=== PATIENT | female | born 1965 | race Caucasian/White ===

== ENCOUNTER 2023-10-26 14:04 | Emergency (ER) | payer BC, SELFPAY ==
[2023-10-26 14:16] VITALS: BP 197/106; PULSE 84; RESP 16; TEMP 36.8; O2SAT 97; BMI 31.5
--- NOTE | 2023-10-26 14:22 | CTR_ITS ---
PROCEDURE INFORMATION: Exam: CT Cervical Spine Without Contrast Exam date and time: 10/26/2023 2:50 PM Age: 58 years old Clinical indication: Injury or trauma; Fall; Blunt trauma; Patient HX: Hit back of head; Additional info: Fall/trauma TECHNIQUE: Imaging protocol: Computed tomography of the cervical spine without contrast. Radiation optimization: All CT scans at this facility use at least one of these dose optimization techniques: automated exposure control; mA and/or kV adjustment per patient size (includes targeted exams where dose is matched to clinical indication); or iterative reconstruction. COMPARISON: CT head wo con* [id number] 10/26/2023 2:50 PM RADIATION DOSE METRICS: Total DLP (mGy-cm): 899.1 FINDINGS: Bones/joints: No fracture or malalignment. Multilevel spondylosis moderate at C5-C6 and mild at other levels. No severe canal stenosis. Lungs: Lung apices are normal. Soft tissues: No acute findings. CT/CT cervical spin wo con* [id number] IMPRESSION: No acute findings.
--- NOTE | 2023-10-26 14:22 | CTR_ITS ---
PROCEDURE INFORMATION: Exam: CT Head Without Contrast Exam date and time: 10/26/2023 2:50 PM Age: 58 years old Clinical indication: Injury or trauma; Fall; Blunt trauma (contusions or hematomas); Patient HX: Hit back of head; Additional info: Trauma/fall TECHNIQUE: Imaging protocol: Computed tomography of the head without contrast. Radiation optimization: All CT scans at this facility use at least one of these dose optimization techniques: automated exposure control; mA and/or kV adjustment per patient size (includes targeted exams where dose is matched to clinical indication); or iterative reconstruction. COMPARISON: CT cervical spin wo con* [id number] 10/26/2023 2:50 PM RADIATION DOSE METRICS: Total DLP (mGy-cm): 981.4 FINDINGS: Brain: No hemorrhage. Chronic white matter and senescent changes. Cerebral ventricles: No ventriculomegaly. Paranasal sinuses: Visualized sinuses are grossly clear. Mastoid air cells: No mastoid effusion. Bones/joints: No acute findings. Soft tissues: Parieto-occipital scalp contusion. CT/CT head wo con* [id number] IMPRESSION: No acute intracranial abnormality.
--- NOTE | 2023-10-26 15:24 | ED_ITS ---
HPI - Head Injury General: Chief complaint: Head Injury Stated complaint: fell,lac to back of head Time Seen by Provider: 10/26/23 15:23 Source: patient Mode of arrival: ambulatory History of Present Illness: 58-year-old female who slipped and fell on the ice at the back of her head when she fell no loss conscious complaining neck pain and headache. She is not on any anticoagulants. There is no loss consciousness she is unsure of her last tetanus shot Complaint: head injury Onset (ago): minute(s) Mechanism of Injury: fall Place: home Loss of Consciousness: no Location of injury: occipital Associated symptoms: Deny amnesia, confusion, nausea, neck pain, numbness, syncope, tingling, vertigo, visual changes, vomiting or weakness Review of Systems Const: Denies: fever(s) or chills Card: Denies: chest pain or syncope Resp: Denies: dyspnea GI: Denies: abdominal pain, nausea or vomiting : Denies: dysuria, urinary frequency or urinary urgency Musc: Denies: neck pain or back pain Skin/Breast: Denies: rash Neuro: Denies: vertigo or confusion Physical Exam Const: COMMON NORMALS: no acute distress GENERAL APPEARANCE: cooperative and comfortable ORIENTATION/CONSCIOUSNESS: Yes awake, Yes oriented to person, Yes oriented to place and Yes oriented to time HENMT: COMMON NORMALS: normocephalic and hearing grossly normal bilaterally HEAD & SCALP: normocephalic OTHER: 1 inch occipital scalp laceration no act erik bleeding Resp: COMMON NORMALS: normal respiratory effort, No retractions and No use of accessory muscles Extremity: COMMON NORMALS: normal to inspection, capillary refill normal, no clubbing, cyanosis or edema, no calf tenderness and no pedal edema Neuro: SENSORIUM/ORIENTATION: Yes oriented to person, Yes oriented to place and Yes oriented to time Skin: COMMON NORMALS: no rashes or lesions noted GENERAL SKIN EXAM: no rashes or lesions noted Procedures Laceration Laceration 1: Site: scalp Size (cm): 2.5 Description: linear Depth: simple, single layer Skin layer closed with: other (Peng) Number of sutures: 2 Course Vital Signs: Vital signs: Vital Signs Temperature 98.3 F 10/26/23 14:16 Pulse Rate 85 10/26/23 17:03 Respiratory Rate 16 10/26/23 17:03 Blood Pressure 179/106 10/26/23 17:03 Pulse Oximetry 95 10/26/23 17:03 Oxygen Delivery Me thod Room Air 10/26/23 17:03 MDM - Head Injury Medcial Decision Making CT head and neck negative. Tetanus updated. 2 peng applied to skin laceration after his wound was cleansed. Wound care instructions given. Blood pressure was markedly elevated patient given hydralazine and improved on manual blood pressure check was 129/87 before discharge discharged home with amlodipine 2.5 mg daily Vining out in 7 to 10 days follow-up with primary care regarding the blood pressure. Medical Records I reviewed the patient's medical records. Lab Data I reviewed the patient's lab results. Radiology Impressions Cervical Spine CT 10/26/23 14:22 IMPRESSION: No acute findings. Head CT 10/26/23 14:22 IMPRESSION: No acute intracranial abnormality. All radiology interpretation(s) finalized by discharge Discharge Plan Discharge Patient Disposition: Home Clinical Impression: Closed head injury, Laceration of scalp, Hypertension Condition: Stable Prescriptions: New amlodipine 2.5 mg tablet 2.5 mg PO DAILY Qty: 30 0RF Discharge Orders: Discharge ED (Routine); Ordered 10/26/23 Ordered By: Randy Combs Discharge Diet: Usual diet Discharge Activity: Resume usual activity Patient Instructions: Opioid Safety, Pain Management Activity Restrictions/Additional Instructions: Thank you for choosing [facility] for your healthcare needs today. Please realize this is an emergency room and that we are providing you with a medical screening exam and this may not be complete and all inclusive of all the testing and or work up that you may need to determine your ailment or severity of your illness. It is very important that you follow up as instructed or that you return to the Emergency Department should you have concerns or if your condition changes or worsens in any way. You are seen today after a fall CT of the head and neck were unremarkable. Laceration was closed with 2 peng. He should be removed by your primary care doctor in 7 to 10 days. Apply topical antibiotic ointment once daily to help the wound heal quicker and make it easier to remove the peng. While you are in the emergency room your tetanus was updated. He also noted a bed elevated blood pressure. He responded to the medications given. Recommend he start amlodipine 2.5 mg once daily and follow-up with your doctor within the next week. Coding Level of Care Code ED Fire Alarm Dispatcher for Debi Pinedo
[2023-10-26 15:45] VITALS: BP 213/130; PULSE 90; RESP 17; O2SAT 98
[2023-10-26] MEDS: amlodipine 10 mg Tablet PO (16:21)
[2023-10-26] MEDS: HYDROcodone-acetaminophen 5-325 mg Tablet 1 TAB PO (16:21)
[2023-10-26] MEDS: tetanus-dipt-pertussis 0.5 mL SDV IM (16:22)
[2023-10-26] MEDS: hyDRALAzine 20 mg/mL INJ 1 mL IVP (16:57)
[2023-10-26 17:03] VITALS: BP 179/106; PULSE 85; RESP 16; O2SAT 95
[2023-10-26] MEDS: ondansetron 4 MG Tablet PO (17:50)
[2023-10-26 17:56] VITALS: BP 179/106; PULSE 85; RESP 16; TEMP 36.8; O2SAT 95
== END 2023-10-26 17:56 | disposition home or self-care (01) ==
PROVIDERS: Emergency Provider Family Medicine
DX: S01.01XA Laceration without foreign body of scalp, initial encounter (principal); I10 Essential (primary) hypertension; Z23 Encounter for immunization; W00.0XXA Fall on same level due to ice and snow, initial encounter
CPT/HCPCS: 12001; 70450; 72125; 90471; 90715; 96374; 99285; J0360; Q0162

== ENCOUNTER 2025-03-20 12:08 | Emergency (ER) | payer SELFPAY ==
[2025-03-20 12:10] VITALS: BP 163/95; PULSE 67; RESP 20; TEMP 36.7; O2SAT 97; BMI 27.8
--- NOTE | 2025-03-20 13:05 | ED.C_ITS ---
HPI - Psych 2 General: Chief Complaint: Psychiatric Symptoms Stated Complaint: MHE Time Seen by Provider: 03/20/25 12:49 History of Present Illness: 59-year-old female brought in by her ginger smith. Patient daughter reports that she is having some auditory, visual hallucinations along with having some memory issues. Daughter reports that she has not been sleeping well due to some restless legs. That she had a lot of insomnia and is only [employer] 2 hours in the last week. Patient denies any suicidal homicidal issues. She does have some short-term memory issues recalling what we just visited about Associated symptoms: Reports auditory hallucinations, visual hallucinations and depression; Deny homicidal ideation or suicidal ideation Related Data Home Medications ?Medication ?Instructions ?Recorded ?Confirmed gabapentin 300 mg capsule 300 mg PO BEDTIME 03/20/25 0 03/20/25 metoprolol succinate 50 mg 50 mg PO DAILY 03/20/2506/06 tablet,extended release 24 hr venlafaxine 150 mg 150 mg PO DAILY 03/20/2506/06 capsule,extended release 24 hr Allergies Allergy/AdvReac Type Severity Reaction Status Date / Time No Known Allergies Allergy Verified 03/20/25 12:22 Review of Systems 2 Psych: Reports: anxiety, depression, sleeping less, memory loss, difficulty concentrating, visual hallucinations and auditory hallucinations; Denies: suicidal ideation or homicidal ideation Physical Exam 2 Const: COMMON NORMALS: no acute distress, healthy appearing and alert G ENERAL APPEARANCE: well kempt Resp: COMMON NORMALS: normal respiratory effort and clear to auscultation bilaterally AUSCULTATION: clear to auscultation bilaterally Cardio: COMMON NORMALS: regular rate and regular rhythm RATE: regular rate RHYTHM: regular rhythm Extremity: COMMON NORMALS: normal to inspection, full ROM and capillary refill normal Neuro: COMMON NORMALS: CN's II-XII intact bilaterally, moves all extremities, no focal motor deficits and no sensory deficits noted SENSORIUM/ORIENTATION: Yes alert Psych: COMMON NORMALS: speech normal APPEARANCE: Yes grossly normal and Yes well kempt SPEECH: Yes normal speech MOOD & AFFECT: Yes euthymic mood T HOUGHT PROCESS: disorganized and confused THOUGHT CONTENT: No Suicidality present, No Homicidality present and Yes Hallucination(s) present A TTENTION/CONCENTRATION: Yes attention grossly intact MEMORY/COGNITION: Yes memory grossly impaired Impared memory type(s): immediate and short term I NSIGHT: Fair insight present (Psych) Course 2 Vital Signs: Vital signs: Vital Signs Temperature 98.1 F 03/20/25 12:10 Pulse Rate 67 03/20/25 12:10 Respiratory Rate 16 03/20/25 18:45 Blood Pressure 163/95 03/20/25 12:10 Pulse Oximetry 97 03/20/25 12:10 Oxygen Delivery Me thod Room Air 03/20/25 12:10 MDM - Psych Medical Decision Making Patient diagnostic studies were ordered reviewed and showed no acute findings. Patient does have I believe some early onset dementia or cognitive decline. He is also dealing with some insomnia and what sounds like restless legs. Discussed need with patient and patient's daughter that she should follow-up with her primary care provider and at behavioral health to have these further evaluated. I do believe patient was having some mild psychosis which may be related to the insomnia versus an other etiology. Patient is does not want to be admitted. Patient daughter at this time felt that she would be safe at home and did not feel that she would need to be 89 to for admission to a [facility] or behavioral health unit. She should return as needed. Patient was stable upon discharge. Lab Data 03/20/25 13:03 03/20/25 13:03 Laboratory Results WBC 6.84 10^3/uL (3.29-11.43) 03/20/25 13:03 RBC 4.22 10^6/uL (3.85-5.65) 03/20/25 13:03 Hgb 10.80 g/dL (11.27-16.99) L 03/20/25 13:03 Hct 35.1 % (36-47) L 03/20/25 13:03 MCV 83.2 fl (85-98) L 03/20/25 13:03 MCH 25.6 pg (27-33) L 03/20/25 13:03 MCHC 30.8 g/dL (30-55) 03/20/25 13:03 RDW 13.9 % (12.1-15.1) 03/20/25 13:03 Plt Count 298 10^3/cmm (157-399) 03/20/25 13:03 MPV 10.3 fL (7.4-10.4) 03/20/25 13:03 Neut % (Auto) 58.7 % 03/20/25 13:03 Lymph % (Auto) 24.6 % 03/20/25 13:03 [place] % (Auto) 10.4 % 03/20/25 13:03 Eos % (Auto) 5.6 % 03/20/25 13:03 Baso % (Auto) 0.4 % 03/20/25 13:03 Neut # (Auto) 4.02 10^3/uL (1.8-7.7) 03/20/25 13:03 Lymph # (Auto) 1.7 10^3/uL (0.8-4.8) 03/20/25 13:03 [place] # (Auto) 0.7 10^3/uL (0.2-0.9) 03/20/25 13:03 Eos # (Auto) 0.4 10^3/uL (0.0-0.8) 03/20/25 13:03 Baso # (Auto) 0.0 10^3/uL (0.0-0.1) 03/20/25 13:03 Nucleated RBC % (auto) 0 % 03/20/25 13:03 Nucleated RBCs # 0.0 /100WBC 03/20/25 13:03 Sodium 136 mmol/L (136-145) 03/20/25 13:03 Potassium 4.3 mmol/L (3.5-5.1) 03/20/25 13:03 Chloride 102 mmol/L (98-107) 03/20/25 13:03 Carbon Dioxide 24 mmol/L (22-29) 03/20/25 13:03 Anion Gap 14.3 (5-19) 03/20/25 13:03 BUN 19 mg/dL (8-23) 03/20/25 13:03 Creatinine 0.9 mg/dL (0.5-0.9) 03/20/25 13:03 GFR Calculation 63.7 mL/min (90-130) L 03/20/25 13:03 Glucose 96 mg/dL (65-115) 03/20/25 13:03 Calculated Osmolality 284 mOsm/kg (285-295) L 03/20/25 13:03 Calcium 9.6 mg/dL (8.5-10.5) 03/20/25 13:03 Total Bilirubin 0.3 mg/dL (0.15-1.2) 03/20/25 13:03 AST 13 U/L (0-32) 03/20/25 13:03 ALT < 5 U/L (0-33) 03/20/25 13:03 Alkaline Phosphatase 77 U/L (35-105) 03/20/25 13:03 Total Protein 7.2 g/dL (6.6-8.7) 03/20/25 13:03 Albumin 4.1 g/dL (3.5-5.2) 03/20/25 13:03 Globulin 3.1 g/dL (1.3-4.6) 03/20/25 13:03 Urine Color Yellow (Yellow) 03/20/25 14:30 Urine Appearance Clear (CLEAR) 03/20/25 14:30 Urine pH 5.5 (5-7) 03/20/25 14:30 Ur Specific [place] 1.009 (1.005-1.030) 03/20/25 14:30 Urine Protein Negative (Negative) 03/20/25 14:30 Urine Glucose (UA) Negative (Normal) 03/20/25 14:30 Urine Ketones Negative (Negative) 03/20/25 14:30 Urine Blood Negative (Negative) 03/20/25 14:30 Urine Nitrate Negative (Negative) 03/20/25 14:30 Urine Bilirubin Negative (Negative) 03/20/25 14:30 Urine Urobilinogen 0.2 mg/dL (Negative) 03/20/25 14:30 Ur Leukocyte Esterase Negative (Negative) 03/20/25 14:30 Urine RBC 0-2 /hpf (0-2) 03/20/25 14:30 Urine WBC 0-5 /hpf (0-5) 03/20/25 14:30 Ur Squamous Epith Cells 0-5 /hpf (0-5) 03/20/25 14:30 Amorphous Sediment Not Reportable 03/20/25 14:30 Urine Bacteria None seen /hpf (NONE) 03/20/25 14:30 Hyaline Casts 0-4 /lpf H 03/20/25 14:30 Salicylates 0.5 mg/dL (3-10) L 03/20/25 13:03 Urine Opiates Screen Negative ng/mL (Negative) 03/20/25 14:30 Acetaminophen < 5.0 ug/mL (10-30) L 03/20/25 13:03 Ur Barbiturates Screen Negative ng/mL (Negative) 03/20/25 14:30 Ur Phencyclidine Scrn Negative ng/mL (Negative) 03/20/25 14:30 Ur Amphetamines Screen Negative ng/mL (Negative) 03/20/25 14:30 U Benzodiazepines Scrn Negative ng/mL (Negative) 03/20/25 14:30 Urine Cocaine Screen Negative ng/mL (Negative) 03/20/25 14:30 U Marijuana (THC) Screen Negative ng/mL (Negative) 03/20/25 14:30 Ethyl Alcohol 16 mg/dL (0-10) H 03/20/25 13:03 No radiology studies performed this visit Discharge Plan Discharge Patient Disposition: Home Clinical Impression: Insomnia, Concern about memory Condition: Stable Prescriptions: No Action metoprolol succinate 50 mg tablet extended release 24 hr 50 mg PO DAILY venlafaxine 150 mg capsule,extended release 24hr 150 mg PO DAILY gabapentin 300 mg capsule 300 mg PO BEDTIME Discharge Orders: Discharge ED (Routine); Ordered 03/20/25 Ordered By: Clement Pozo Discharge Diet: Usual diet Discharge Activity: Resume usual activity Patient Instructions: Insomnia (ED), Mild Cognitive Impairment: New Diagnosis (DC), Opioid Safety, Pain Management Activity Restrictions/Additional Instructions: Please follow-up with your primary care provider for further treatment evaluation of your difficulty sleeping. Please consider follow-up with behavioral health for further evaluation of your memory concerns. Return to the ER as needed. Print Language: Vietnamese Coding Level of Care Code ED Hospital Chaplain for Debi Piendo
[2025-03-20 13:10] LABS: Basophils % 0.4 %; Eosinophils # 0.4 10^3/uL (0.0-0.8); Eosinophils % 5.6 %; Hematocrit 35.1 % (36-47); Lymphocytes # 1.7 10^3/uL (0.8-4.8); Lymphocytes % 24.6 %; Mean Corpuscular HGB Conc 30.8 g/dL (30-55); Mean Corpuscular Hemoglobin 25.6 pg (27-33); Mean Corpuscular Volume 83.2 fl (85-98); Mean Platelet Volume 10.3 fL (7.4-10.4); Monocytes # 0.7 10^3/uL (0.2-0.9); Monocytes % 10.4 %; Neutrophils # 4.02 10^3/uL (1.8-7.7); Neutrophils % 58.7 %; Nucleated Red Blood Cells % 0 %; Platelet Count 298 10^3/cmm (157-399); Red Blood Count 4.22 10^6/uL (3.85-5.65); Red Cell Distribution Width 13.9 % (12.1-15.1); White Blood Count 6.84 10^3/uL (3.29-11.43)
[2025-03-20 13:24] LABS: Alanine Aminotransferase < 5 U/L (0-33); Albumin Level 4.1 g/dL (3.5-5.2); Alcohol Level 16 mg/dL (0-10); Alkaline Phosphatase 77 U/L (35-105); Anion Gap 14.3 (5-19); Aspartate Amino Transferase 13 U/L (0-32); Blood Urea Nitrogen 19 mg/dL (8-23); Calcium 9.6 mg/dL (8.5-10.5); Carbon Dioxide 24 mmol/L (22-29); Chloride 102 mmol/L (98-107); Creatinine Clr Calc Pharmacy 79.0658; Globulin 3.1 g/dL (1.3-4.6); Glomerular Filtration Rate 63.7 mL/min (90-130); Glucose 96 mg/dL (65-115); Osmolality Calculated 284 mOsm/kg (285-295); Potassium 4.3 mmol/L (3.5-5.1); Salicylate 0.5 mg/dL (3-10); Sodium 136 mmol/L (136-145); Total Bilirubin 0.3 mg/dL (0.15-1.2); Total Protein 7.2 g/dL (6.6-8.7)
[2025-03-20 13:36] LABS: Acetaminophen < 5.0 ug/mL (10-30)
[2025-03-20] MEDS: hyDROXYzine 25 mg Capsule PO (13:45)
--- NOTE | 2025-03-20 13:45 | PC.NURSE ---
pt educated on need for UA sample. provided water and urine specimen cup.
[2025-03-20 13:49] VITALS: RESP 18
[2025-03-20 15:46] LABS: Bilirubin Urine Negative (Negative); Blood Urine Negative (Negative); Glucose Urine UA Negative (Normal); Ketones Urine Negative (Negative); Leukocyte Esterase Urine Negative (Negative); Nitrate Urine Negative (Negative); Protein Urine Negative (Negative); Specific Gravity, Urine 1.009 (1.005-1.030); Urine Appearance Clear (CLEAR); Urine Color Yellow (Yellow); Urobilinogen Urine 0.2 mg/dL (Negative); pH Urine 5.5 (5-7)
[2025-03-20 15:49] LABS: Add Urine Microscopic? YES; Bacteria Urine None Seen /hpf; Hyaline Casts Urine 0-4 /lpf; RBC Urine 0-2 /hpf (0-2); Squamous Epithelial Cell Urine 0-5 /hpf (0-5); WBC Urine 0-5 /hpf (0-5)
[2025-03-20 15:53] LABS: Amphetamines Screen Urine Negative (Negative); Barbiturates Screen Urine Negative (Negative); Benzodiazepines Screen Urine Negative (Negative); Cocaine Screen Urine Negative (Negative); Opiate Screen Urine Negative (Negative); PCP Screen Urine Negative (Negative); THC Screen Urine Negative (Negative)
[2025-03-20] MEDS: gabapentin 300 mg Capsule PO (17:21)
--- NOTE | 2025-03-20 18:23 | PC.NURSE ---
this nurse and Dr. Pozo has spoken with pt's daughter on various occasions throughout pt's visit in ER regarding placement or sending pt home; @1823, this nurse and daughter re-approached options; daughter has decided she is comfortable with taking patient home and receiving outpatient treatment. Dr. Pozo notified.
--- NOTE | 2025-03-20 18:32 | PC.NURSE ---
report given to [facility] @1810, no further questions.
[2025-03-20 18:45] VITALS: RESP 16
== END 2025-03-20 18:48 | disposition home or self-care (01) ==
PROVIDERS: Emergency Provider Student in an Organized Health Care Education/Training Program
DX: G47.00 Insomnia, unspecified (principal); R41.3 Other amnesia
CPT/HCPCS: 36415; 80053; 80306; 80307; 81001; 85025; 99283; J9999

== ENCOUNTER → 2025-04-05 10:33 | Outpatient (BNVA) | payer OTHER, SELFPAY | DX: I10 Essential (primary) hypertension (principal) | CPT/HCPCS: 80053; 80061; 83036; 85025 ==